=== PATIENT | female | born 1990 | race Caucasian/White ===

== ENCOUNTER 2021-06-27 21:37 | Emergency (ER) | payer MEDICARE ==
[~2021-06-27] VITALS: Ht 165.1 cm; Wt 74.0 kg
[~2021-06-27 21:37] MED LIST: LEVO500T89 MT; LISI10TA26 MT
[2021-06-27] MEDS ORDERED: ACETAMINOPHEN 500MG TABLET PO ONE (23:45)
[2021-06-27 23:47] LABS: CLARITY URINE CLOUDY (CLEAR); COLOR URINE YELLOW (YELLOW); KETONES URINE NEGATIVE (NEGATIVE); LEUKOCYTE ESTERASE URINE 3+ (NEGATIVE); NITRITE URINE NEGATIVE (NEGATIVE); OCCULT BLOOD URINE 1+ (NEGATIVE); PROTEIN URINE 3+ (NEGATIVE); SPECIFIC GRAVITY URINE 1.013 (1.005-1.030); UROBILINOGEN URINE 0.2 E.U./dL (0.2-1.0)
[2021-06-28] MEDS ORDERED: LIDOCAINE HCL 1% 20ML VIAL (Pyxis) INJ INFIL SCH
[2021-06-28] MEDS ORDERED: CEFTRIAXONE SODIUM 1 G/VIAL IM SCH
[2021-06-28 00:39] LABS: BASOPHILS % 0.1 % (0.0-2.0); EOSINOPHILS % 1.1 % (0.0-5.0); LYMPHOCYTES % 7.8 % (20.0-50.0); MEAN CORPUSCULAR VOLUME 87.5 fL (81.0-99.0); MEAN PLATELET VOLUME 8.2 fl (7.4-10.4); MONOCYTES % 6.8 % (2.0-8.0); NEUTROPHILS % 84.2 % (40.0-76.0); PLATELET 217 x1000/uL (130-400); RED BLOOD CELL COUNT 3.66 mill/uL (4.2-5.4); RED CELL DISTRIBUTION WIDTH 13.3 % (11.6-14.6)
[2021-06-28 00:42] LABS: CHLORIDE 112 mEq/L (98-107)
[2021-06-28] MEDS ORDERED: CEPH500C2 MT (01:11)
[2021-06-28 01:20] VITALS: BP 129/77
== END 2021-06-28 01:34 | disposition home or self-care (01) ==
LOC: ER 21:37
DX: N39.0 Urinary tract infection, site not specified (principal); R05 Cough; R09.81 Nasal congestion; I12.9 Hypertensive chronic kidney disease with stage 1 through stage 4 chronic kidney disease, or unspecified chronic kidney disease; N18.30 Chronic kidney disease, stage 3 unspecified; Z79.899 Other long term (current) drug therapy; Z91.013 Allergy to seafood
CPT/HCPCS: 36415; 71045; 80053; 81003; 85025; 87077; 87086; 87186; 96372; 99284; J0696; J3490

== ENCOUNTER 2022-07-04 18:58 | Emergency (ER) | payer MEDICARE ==
[~2022-07-04] VITALS: Ht 157.5 cm; Wt 60.0 kg
[~2022-07-04 18:58] MED LIST changes: +CEPH500C2 MT; -LEVO500T89 MT; +LEVO500T90 MT
[2022-07-04 19:03] VITALS: BP 125/83
== END 2022-07-04 23:50 | disposition left against medical advice (07) ==
LOC: ER 18:58
DX: Z53.21 Procedure and treatment not carried out due to patient leaving prior to being seen by health care provider (principal)

== ENCOUNTER 2022-07-12 23:15 | Emergency (ER) | payer MEDICARE ==
[~2022-07-12] VITALS: Ht 165.1 cm; Wt 74.0 kg
[2022-07-13 00:08] VITALS: BP 132/75
== END 2022-07-13 06:07 | disposition left against medical advice (07) ==
LOC: ER 23:15
DX: Z53.21 Procedure and treatment not carried out due to patient leaving prior to being seen by health care provider (principal); R33.9 Retention of urine, unspecified
CPT/HCPCS: 81025